=== PATIENT | female | born 1970 | race African-American/Black ===

== ENCOUNTER 2021-10-19 10:42 | Emergency (ER) | payer MEDICARE ==
[2021-10-19] MEDS ORDERED: Ondansetron ODT 4 MG TAB ONE (11:03)
[2021-10-19] MEDS ORDERED: Promethazine HCl 25 MG/ML VIAL ONE (12:07)
== END 2021-10-19 13:15 | disposition home or self-care (01) ==
LOC: CSHERS 10:42
DX: U07.1 COVID-19 (principal); E11.9 Type 2 diabetes mellitus without complications; I10 Essential (primary) hypertension
CPT/HCPCS: 87804 ×2; U0003; U0005; 96365; J2550; Q0162

== ENCOUNTER 2022-09-26 17:27 | Emergency (ER) | payer MEDICARE ==
[~2022-09-26 17:27] MED LIST: Iopamidol 300 61% 100 ML VIAL FS ONE
[2022-09-26 18:27] LABS: #Eosinphils 0.2 10x3/uL (0.0-0.5); #Monocytes 0.6 10x3/uL (0.0-1.1); #Neutrophils 4.2 10x3/uL (1.5-8.4); %Basophils 0.1 % (0.0-2.0); %Eosinophils 3.3 % (0.0-6.0); %Lymphocytes 30.4 % (18.0-47.0); %Monocytes 8.3 % (0.0-10.0); %Neutrophils 57.8 % (40.0-75.0); Mean Corpuscular HGB CONC 32.4 g/dL (32.0-36.0); Mean Corpuscular Hemoglobin 25.6 pg (27.0-33.0); Mean Corpuscular Volume 79.1 fl (81.6-98.3); Mean Platelet Volume 9.8 fl (7.4-10.4); Platelet Count 334 10x3/uL (150-450); RBC Distribution Width 14.6 % (11.5-14.5); Red Blood Cell (RBC) Count 4.68 10x6/uL (3.90-5.03); White Blood Cell (WBC) Count 7.2 10x3/uL (3.5-10.5)
[2022-09-26 18:38] LABS: ALT (SGPT) 31 U/L (8-55); AST (SGOT) 31 U/L (5-34); Albumin 4.3 g/dL (3.5-5.0); Alkaline Phosphatase 100 U/L (40-110); Anion Gap 15 mmol/L (10-20); BUN (Urea Nitrogen) 13 mg/dL (7.0-18.7); Bilirubin, Total 0.2 mg/dL (0.2-1.2); Calc. Creatinine Clearance 0 mL/min (70-130); Carbon Dioxide 22 mmol/L (22-29); Chloride 104 mmol/L (98-107); Estimated GFR 85; Globulin 3.6 g/dL (2.4-3.5); Glucose 151 mg/dL (70-105); Potassium 3.7 mmol/L (3.5-5.1); Protein, Total 7.9 g/dL (6.0-8.3); Sodium 137 mmol/L (136-145)
[2022-09-26] MEDS ORDERED: Ketorolac Tromethamine 30 MG/ML VIAL ONE (18:45)
[2022-09-26] MEDS ORDERED: Ondansetron PF 4 MG/2 ML Vial ONE ×2 (18:45→21:06)
[2022-09-26 22:28] LABS: Bilirubin Neg (Negative); Blood, Urine 10 (Negative); Clarity Slightly Cloudy (Clear); Glucose, Urine (Dipstick) Normal (Negative); Ketone, Urine Negative (Negative); Leukocyte Negative (Negative); Nitrite Negative (Negative); Protein, Urine (Dipstick) 30 mg/dl (Neg-Trace); Specific Gravity, Urine 1.015 (1.005-1.030)
[2022-09-26 22:32] LABS: Pregnancy Test - Urine (BHCG) Negative (Negative); Pregu Control Background? CLEAR/WHITE (CLR/WHITE); Pregu Control Bar Appear? YES (CONTROL BAR); Specific Gravity 1.015 (1.002-1.036)
[2022-09-26 22:35] LABS: CAUTI Indications for Culture Dysuria,urgency,freq; RBC/HPF 0-3 HPF (0-3); WBC/HPF 0-3 HPF (0-3)
[2022-09-26 22:36] LABS: Bacteria/HPF 4+ HPF (None Seen); Calcium Oxalate Crystals 3+ HPF (None Seen)
[2022-09-26 22:37] LABS: Urine Culture Reflex No No
== END 2022-09-27 00:12 | disposition home or self-care (01) ==
LOC: CSHERS 17:27
DX: R10.11 Right upper quadrant pain (principal); N39.0 Urinary tract infection, site not specified; E11.9 Type 2 diabetes mellitus without complications; E78.00 Pure hypercholesterolemia, unspecified; Z79.899 Other long term (current) drug therapy; Z79.84 Long term (current) use of oral hypoglycemic drugs
CPT/HCPCS: 74177; 80053; 81001; 81025; 83690; 85025; 96374; 96375; 96376; J1885; J2405; Q9967